=== PATIENT | female | born 1985 | race Caucasian/White ===

== ENCOUNTER 2020-02-11 12:41 | Emergency (ER) | payer OTHER, SELFPAY ==
[2020-02-11 13:18] VITALS: BP 156/74; PULSE 80; RESP 16; TEMP 36.8; O2SAT 98; BMI 28.3
--- NOTE | 2020-02-11 14:08 | ED.SKABFB ---
HPI - Skin/Abscess/Foreign Bdy General Chief complaint: Skin/Abscess/Foreign Body Stated complaint: cyst Time Seen by Provider: 02/11/20 14:08 Source: patient Mode of arrival: ambulatory Limitations: no limitations History of Present Illness HPI narrative: 35 y/o female with history of hidradenitis suppurativa presenting with painful abscess to left breast for the last 3 days. She has history of the same, requiring I&D and antibiotics in the past. She is followed by a Energy Conservation Technician in [place] who was unable to see her today. She states the pain is in the same area as previous cysts in the area, on the underside of her breast. It is red and swollen. She denies fevers. She denies extension to the nipple and no nipple discharge. MD complaint: abscess/boil Onset (ago): day(s) (3) Tetanus up to date: unsure Location: chest Severity: similar to previous episodes Severity scale (1-10): 8 Quality: aching and constant Pain Consistency: constant Relieving factors: none Exacerbating factors: palpation and movement Context: none Associated symptoms: denies other symptoms Treatments prior to arrival: none Related Data Previous Rx's Medication Instructions Recorded cephalexin [Keflex] 500 mg PO QID #28 cap 02/11/20 doxycycline monohydrate 100 mg PO BID #14 cap 02/11/20 Allergies Allergy/AdvReac Type Severity Reaction Status Date / Time Sulfa (Sulfonamide Allergy Unknown ITCHING, Verified 02/11/20 13:18 Antibiotics) itchiness [SULFA (SULFONAMIDE ANTIBIOTICS)] Review of Systems Review of Systems: Constitutional: No Fever, No Chills Cardiovascular: No Chest Pain, No SOB, No Orthopnea, No Edema Respiratory: No Cough, No Sputum, No Wheezing, No dyspnea Gastrointestinal: No Nausea, No Vomiting, No Diarrhea Musculoskeletal: No joint pain, No Myalgias Skin: + Skin Lesions, No rash Neuro: No Weakness, No Numbness, No Dizziness, No Headache Heme/Lymph: No Bruising PMFSH Past Medical History Attestation statement: The following information was validated with the patient. Medical History Hydradenitis Social History Social History Alcohol intake: current Alcohol intake frequency: holidays/special occasions only Smoking Status: Never smoker Advance Directives: No Advance Directives Information Provided: No Physical Exam Vital Signs: Vital Signs: Last Vital Signs Temp 98.3 F 02/11/20 13:18 Pulse 80 02/11/20 13:18 Resp 16 02/11/20 13:18 BP 156/74 H 02/11/20 13:18 Pulse Ox 98 02/11/20 13:18 Body Mass Index 28.3 Appearance: Alert. Oriented X3. No acute distress. HEENT: normal inspection CVS: Normal heart rate and rhythm. Pulses normal. Respiratory: No respiratory distress. Chest: unmderside of left breast with tender, erythematous and warm area 6-8 cm, slightly indurated with small area of fluctuance over well healed scar located at 7 o'clock position. normal nipple inspection Skin: Skin warm and dry. Normal skin color. Normal skin turgor. No rashes. Extremities: no edema, no skin lesions. Neuro: Oriented X 3. No motor deficit. No sensory deficit. Course Course Course Narrative: 35 y/o female presenting with left breast cellulitis, possible abscess . Will get ultrasound for further evaluation. Doxycycline and Keflex given now. She is afebrile with no tachycardia, no evidence of sepsis. Reevaluation(s) Reevaluation #1: Ultrasound results: There is a peripherally vascular oval hypoechoic abnormality with posterior enhancement in the setting of erythema and pain. This measures 1.6 x 0.8 x 2.1 cm. This may represent an abscess. Depending upon the clinical circumstances ultrasound-guided aspiration may yield fluid. No indication for emergent drainage. Will start oral abx and refer to Surgery. Stable for d/c. Patient counseled. Discharge Plan Discharge Clinical Impression: Abscess of breast, Cellulitis of left breast Patient Disposition: Home, Self-Care Instructions: Abscess (ED) Additional Instructions: Your ultrasound today showed a small oval lesion measuring 1.6 cm x 0.8 cm x 2.1cm that likely represents an abscess. Given its location, it is recommended that this be evaluated and drained by a Security Intelligence Analyst. Call Dr. Rojas's office tomorrow to arrange evaluation. Take the prescribed antibiotics for infection. Use warm compresses to the area several times per day. If you have worsening pain, redness or develop fevers come back to the ER for further evaluation. Prescriptions: New doxycycline monohydrate 100 mg capsule 100 mg PO BID Qty: 14 RF: 0 cephalexin [Keflex] 500 mg capsule 500 mg PO QID Qty: 28 RF: 0 Referrals: Flaca Rojas MD [Physician] - 1 day (breast abscess)
--- NOTE | 2020-02-11 14:18 | US_ITS ---
EXAMINATION: US DIAGNOSTIC ULTRASOUND BREAST, LEFT CLINICAL INFORMATION: Tenderness and redness left breast. Clinical concern regarding abscess. COMPARISON: None. TECHNIQUE: Ultrasound of the breast is performed with real-time mcghee scale imaging and color Doppler. Targeted diagnostic exam. FINDINGS: In the area of clinical concern there is an oval hypoechoic abnormality immediately beneath the skin measuring 1.6 x 0.8 x 2.1 cm. There is posterior enhancement. The margins are irregular. There is peripheral color signal. There is some surrounding increased echogenicity. There are low level internal echoes. I did not have an opportunity to scan the patient US/US breast LT limited IMPRESSION: There is a peripherally vascular oval hypoechoic abnormality with posterior enhancement in the setting of erythema and pain. This measures 1.6 x 0.8 x 2.1 cm. This may represent an abscess. Depending upon the clinical circumstances ultrasound-guided aspiration may yield fluid. ASSESSMENT: BI-RADS 2: Benign RECOMMENDATION: 1. Patient should be managed based on the clinical impression. Decision to proceed with biopsy should be based on clinical grounds and degree of clinical concern. 2. Consider ultrasound-guided aspiration for possible abscess. This patient's information was entered into a reminder system with a target due date for their next mammogram.
[2020-02-11] MEDS: Acetaminophen 325 MG TABLET 975 MG PO (14:33)
[2020-02-11] MEDS: cephALEXin 500 MG CAPSULE PO (14:34)
== END 2020-02-11 18:07 | disposition home or self-care (01) ==
PROVIDERS: Emergency Provider Emergency Medicine Emergency Medical Services; PCP Internal Medicine
DX: N61.1 Abscess of the breast and nipple (principal)
CPT/HCPCS: 76642; 99283; 99284

== ENCOUNTER 2020-02-25 15:23 | Outpatient (REF) | payer OTHER, SELFPAY | END 2020-02-25 15:24 | disposition home or self-care (01) | LOC: HO.LAB 15:23 | PROVIDERS: PCP Internal Medicine; Visit Provider Surgery | DX: N61.1 Abscess of the breast and nipple (principal) | CPT/HCPCS: 87071; 87077; 87186; 87205; 99202 ==

== ENCOUNTER → 2020-03-03 14:33 | Outpatient (BNVA) | payer OTHER, SELFPAY | PROVIDERS: PCP Internal Medicine; Visit Provider Surgery | DX: N61.1 Abscess of the breast and nipple (principal) | CPT/HCPCS: 99212 ==

== ENCOUNTER 2020-03-15 06:48 | Day surgery (SDC) | payer OTHER, SELFPAY ==
[2020-03-08 16:14] VITALS: BMI 28.6
--- NOTE | 2020-03-12 09:46 | HO.ANESPROP2 ---
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 If so, by whom?: No Advance Directives: No Advance Directives Information Provided: No Advance Directives on File: No Recently lost weight without trying: No Meds Allergies Allergy/AdvReac Type Severity Reaction Status Date / Time Sulfa (Sulfonamide Allergy Unknown ITCHING, Verified 03/08/20 16:14 Antibiotics) itchiness [SULFA (SULFONAMIDE ANTIBIOTICS)] Home Medications Medication Instructions Recorded Confirmed Type clindamycin HCl 1 cap PO BID 03/08/20 03/08/20 History Exam Exam Date and Time: March 12, 2020 0946 Height,Weight and Vital Signs: Height 5 ft 4 in Weight 75.75 kg Assessment and Plan Assessment Anesthesia Assessment: Chart Reviewed Documented by User: Mary Ann Tamez 03/15/20 08:04 [facility] Past Medical History Medical History History of kidney stones Hydradenitis Family History Family history of problems with anesthesia: No Surgical History Surgical History History of removal of cyst History of surgical removal of pilonidal cyst History of Problems with Anesthesia: No Social History Social History Are you a primary student career development specialist to a significant other at home: Yes Do you presently have visiting nurse or other home services: No Alcohol intake: current Alcohol intake frequency: holidays/special occasions only Smoking Status: Never smoker Use of substances other than those prescribed or required for medical reasons: No Have you been hit, kicked, punched, or otherwise hurt by someone within the past year? If so, by whom?: No Advance Directives: No Advance Directives Information Provided: No Advance Directives on File: No Recently lost weight without trying: No Meds Allergies Allergy/AdvReac Type Severity Reaction Status Date / Time Sulfa (Sulfonamide Allergy Unknown ITCHING, Verified 03/08/20 16:14 Antibiotics) itchiness [SULFA (SULFONAMIDE ANTIBIOTICS)] Home Medications Medication Instructions Recorded Confirmed Type clindamycin HCl 1 cap PO BID 03/08/20 03/08/20 History Exam Height,Weight and Vital Signs: Vital Signs Temp Pulse Resp BP Pulse Ox 03/15/20 07:47 97.5 F 79 16 125/80 99 Pertinent Lab Results Pertinent Lab Results: Lab Results 03/15/20 Range/Units 07:15 Urine Test NEGATIVE (NEGATIVE) Airway Mallampati Class: II TM Dist: >3cm Neck ROM: Full (But woke up with crick in neck this am- positional from sleep) Loose/Missing/Broken Teeth: No Heart: RRR Lungs: CTAB Assessment and Plan Assessment Anesthesia Assessment: Anesthesia Plan Discussed and Chart Reviewed Final Anesthetic Review NPO: Yes ASA Class: II Final Preanesthetic Review: No Changes in Pt Med Stat, Meds/Allgs Chart Reviewed, Consent Obtained/Reviewed and Anes Risks/Benef Reviewed Patient Risk: Low Procedure Risk: Low Assessment/Block/Sedation in SS: Assess/Block/Sedation-SS Anesthetic Plan Anesthetic Plan: GA Disposition: Standard PACU
[2020-03-15 07:34] LABS: UPreg QC Valid YES; Urine Pregnancy NEGATIVE (NEGATIVE)
--- NOTE | 2020-03-15 07:35 | MHC.SHP ---
Pre-Procedural Eval Section A The patient is an INPATIENT: No Changes since office visit: Yes Patient answered all questions; No Cold of Flu in the past 2 weeks, No New Medical Problems and No Changes in Medication The History & Physical has been completed within 30 days and I have reviewed it.: Yes Section B Chief Complaint: Left breast abscess Allergies: Allergies Allergy/AdvReac Type Severity Reaction Status Date / Time Sulfa (Sulfonamide Allergy Unknown ITCHING, Verified 03/08/20 16:14 Antibiotics) itchiness [SULFA (SULFONAMIDE ANTIBIOTICS)] Plan Diagnosis/Plan: Unchanged I have reviewed the history and physical and performed a pertinent physical examination on my patient. No changes have occurred unless specified.
[2020-03-15 07:47] VITALS: BP 125/80; PULSE 79; RESP 16; TEMP 36.4; O2SAT 99
[2020-03-15] MEDS: Lactated Ringers 1,000 ML 100 ML IVCONT (08:01)
--- NOTE | 2020-03-15 09:12 | PM.OP ---
Brief Operative Note Date of Service: 03/15/20 Pre-op diagnosis: Left breast skin cyst Post-op diagnosis: same Procedure: Excision of left breast skin cyst Implants: None Surgeon: Abner Duran MD Anesthesia: GLMA Invasive Physician: Laura Locke Estimated blood loss (mL): 5 Pathology: other (Left breast skin cyst) Condition: stable Disposition: PACU
--- NOTE | 2020-03-15 09:13 | P.OP_ITS ---
Operative Note Operative Note Date of Service: 03/15/20 Narrative: Preoperative diagnosis: Left breast cyst Postoperative diagnosis: Same Procedure: Excision of left breast skin cyst Surgeon: Abner Duran MD Chief Of Anesthesiology: Laura Locke PA-C Anesthesia: General LMA Indications for procedure: 35-year-old female with history of hidradenitis presenting with skin infection of the left breast consistent with hidradenitis. Patient has had multiple infections from the site is requested excision. On examination the patient has an area measuring approximately 2 cm with multiple areas of skin drainage. Findings are consistent with hidradenitis. Operative findings: Area of hidradenitis in the left breast in the medial surface measuring approximately 2 cm. This was excised and the wounds closed primarily. No evidence of an active abscess or appreciated. Specimen: Left breast skin cyst Estimated blood loss: 5 mL Complications: None Procedure details: Patient was brought to the OR placed in a supine position. After administering general anesthesia the patient's left breast was prepped with Betadine and draped in a sterile fashion. A surgical time-out was called the consent confirmed. Patient received preoperative antibiotics and Venodyne boots were in place. Local anesthesia consisting of 0.25% Sensorcaine was then infiltrated around the area of concern. An elliptical incision was then created along the medial inferior portion of the left breast this was carried out through subcutaneous tissue and around the cystic structures. Lesion was completely excised and sent to pathology for further examination. Hemostasis was assured using elec trocautery. The wounds were then irrigated with saline and suctioned dry. Deep breast tissue and dermis were reapproximated using interrupted 3-0 Polysorb sutures. Skin was closed using a running subcuticular 4 0 Polysorb suture. Steri-Strips 2 x 2 gauze and Tegaderm were then applied. The patient tolerated the procedure well. Sponge, instrument, needle counts were reported as correct. Patient was transferred to PACU in stable condition.
[2020-03-15 09:22] VITALS: BP 109/65; PULSE 85; RESP 14; TEMP 36.2; O2SAT 97
[2020-03-15 09:27] VITALS: BP 116/70; PULSE 82; RESP 18; O2SAT 96
[2020-03-15 09:32] VITALS: BP 115/69; PULSE 68; RESP 18; O2SAT 96
[2020-03-15 09:37] VITALS: BP 113/62; PULSE 67; RESP 18; O2SAT 96
[2020-03-15] MEDS: Acetaminophen 325 MG TABLET 650 MG PO (09:46)
[2020-03-15] MEDS: oxyCODONE HCl Immed Release 5 MG TABLET PO (09:47)
[2020-03-15] MEDS: Ketorolac Tromethamine 15 MG/ML VIAL IVPUSH (09:48)
[2020-03-15 09:52] VITALS: BP 121/68; PULSE 63; RESP 20; O2SAT 97
--- NOTE | 2020-03-15 11:14 | HO.POSTANES ---
Post Anesthesia Evaluation Post Anesthesia Evaluation Vital Signs: Vital Signs Temp Pulse Resp BP Pulse Ox 03/15/20 09:52 97.2 F 63 20 121/68 97 03/15/20 09:37 67 18 113/62 96 03/15/20 09:32 68 18 115/69 96 03/15/20 09:27 82 18 116/70 96 03/15/20 09:22 97.2 F 85 14 109/65 97 03/15/20 07:47 97.5 F 79 16 125/80 99 Anesthesia: General LMA Mental Status: Awake Pain Control: Satisfactory Nausea/Vomiting: None Hydration: Adequate Anesthesia-Related Issues: No Anes. Related Issues
== END 2020-03-15 11:09 | disposition home or self-care (01) ==
PROVIDERS: Nurse Practitioner; PCP Internal Medicine; Visit Provider Surgery
PROC: (CPT 19120; principal; 2020-03-15 08:40)
DX: N60.02 Solitary cyst of left breast (principal); L73.2 Hidradenitis suppurativa; Z88.2 Allergy status to sulfonamides
CPT/HCPCS: 19120; 81025; 88304; J0690; J1100; J1885; J2250; J2405; J3010

== ENCOUNTER → 2020-03-24 10:59 | Outpatient (BNVA) | payer OTHER, SELFPAY | PROVIDERS: PCP Internal Medicine; Visit Provider Surgery | DX: N61.1 Abscess of the breast and nipple (principal) | CPT/HCPCS: 99212 ==

== ENCOUNTER 2020-12-30 08:15 | Outpatient (REF) | payer OTHER, SELFPAY | END 2020-12-30 08:16 | disposition home or self-care (01) | LOC: HO.LAB 08:15 | PROVIDERS: PCP Internal Medicine; Referring Provider Internal Medicine; Visit Provider Surgery | DX: N61.1 Abscess of the breast and nipple (principal) | CPT/HCPCS: 87071; 87077; 87186; 87205; 99212 ==

== ENCOUNTER → 2021-01-14 10:19 | Outpatient (BNVA) | payer OTHER, SELFPAY | PROVIDERS: PCP Internal Medicine; Referring Provider Internal Medicine; Visit Provider Surgery | DX: Z48.817 Encounter for surgical aftercare following surgery on the skin and subcutaneous tissue (principal); Z87.2 Personal history of diseases of the skin and subcutaneous tissue | CPT/HCPCS: 99212 ==

== ENCOUNTER → 2021-05-10 14:37 | Outpatient (BNVA) | payer OTHER, SELFPAY | PROVIDERS: PCP Internal Medicine; Referring Provider Internal Medicine; Visit Provider Surgery | DX: N61.1 Abscess of the breast and nipple (principal) | CPT/HCPCS: 99212 ==